=== PATIENT | female | born 1950 | race Caucasian/White ===

== ENCOUNTER 2019-04-08 07:07 | Day surgery (SDC) | payer BC ==
[~2019-04-08] VITALS: Ht 162.6 cm; Wt 62.6 kg
[~2019-04-08 07:07] MED LIST: APIX5TAB PO; CYAN500T25 PO; ETH1T PO; HYDR25TA4 PO; LEVO25TA6 PO; MULTTAB99 PO
[2019-04-08] MEDS ORDERED: MIDAZOLAM HCL 5 MG/ML-1ML VIAL IV ONE (07:45)
[2019-04-08] MEDS ORDERED: LIDOCAINE VISCOUS 2% 15ML UD MT ONE (07:45)
[2019-04-08] MEDS ORDERED: fentaNYL CITRATE 100 MCG/2 ML VL IV ONE (07:45)
[2019-04-08] MEDS ORDERED: MIDAZOLAM HCL 1MG/1ML-2 ML VIAL ONE (08:26)
== END 2019-04-08 08:58 | disposition home or self-care (01) ==
LOC: CATH 07:07
PROVIDERS: ATTEND Internal Medicine
DX: Z53.9 Procedure and treatment not carried out, unspecified reason (principal); I48.91 Unspecified atrial fibrillation
CPT/HCPCS: 93005; 99152; J2250